=== PATIENT | male | born 1975 | race African-American/Black ===

== ENCOUNTER 2017-01-04 13:44 | Inpatient (IN) | payer OTHER ==
[2017-01-04 15:23] VITALS: BMI 27.6
--- NOTE | 2017-01-04 18:36 | HP ---
CIWA Score - CIWA Score Nausea/Vomitin Muscle Tremors: 3 Anxiety: 3 Agitation: 3 Paroxysmal Sweats: 2 Orientation: 0-Oriented Tacttile Disturbances: 2-Mild Itch/Numbness/Burn Auditory Disturbances: 2-Mild Harshness/Frighten Visual Disturbances: 2-Mild Sensitivity Headache: 2-Mild CIWA-Ar Total Score: 22 Admission ROS BHS - HPI Chief Complaint: I NEED HELP TO STOP DRINKING ALCOHOL AND COCAINE Allergies/Adverse Reactions: Allergies Allergy/AdvReac Type Severity Reaction Status Date / Time No Known Allergies Allergy Verified 01/04/17 18:55 History of Present Illness: THIS 41 YEARS OLD BLACK MALE WITH ALCOHOL AND COCAINE DEPENDENCE,SEEKING DETOX, LAST TREATMENT IN 09/21/16 T0009/23/16 NOT COMPLETED NICOTINE DEPENDENCE NO SIGNIFICANT PERIOD OF SOBRIETY MULTIPLE ADMISSIONS IN THE PAST BUT KEEP RELAPSING - Ebola screening Have you traveled outside of the country in the last 21 days: No Have you had contact with anyone from an Ebola affected area: No Have you been sick,other than usual withdrawal symptoms: No Do you have a fever: No - Review of Systems Constitutional: Loss of Appetite, Malaise, Night Sweats, Changes in sleep, Weakness EENT: reports: Nose Congestion Respiratory: reports: No Symptoms reported Cardiac: reports: No Symptoms Reported GI: reports: Diarrhea, Nausea, Abdominal cramping : reports: No Symptoms Reported Musculoskeletal: reports: Back Pain, Joint Pain, Muscle Pain Integumentary: reports: Dryness Neuro: reports: Headache, Tremors Endocrine: reports: No Symptoms Reported Hematology: reports: No Symptoms Reported Psychiatric: reports: No Sypmtoms Reported, Judgement Intact, Mood/Affect Appropiate, Orientated x3 Patient History - Patient Medical History Hx Anemia: No Hx Asthma: No Hx Chronic Obstructive Pulmonary Disease (COPD): No Hx Cancer: No Hx Cardiac Disorders: No Hx Congestive Heart Failure: No Hx Hypertension: No Hx Hypercholesterolemia: No Hx Pacemaker: No HX Cerebrovascular Accident: No Hx Seizures: No Hx Dementia: No Hx Diabetes: No Hx Gastrointestinal Disorders: No Hx Liver Disease: No Hx Genitourinary Disorders: No Hx Sexually Transmitted Disorders: No Hx Renal Disease (ESRD): No Hx Thyroid Disease: No Hx Human Immunodeficiency Virus (HIV): No (LAST 10/11 NEGATIVE) Hx Hepatitis C: No Hx Depression: Yes (NO MEDICATION) Hx Suicide Attempt: No Hx Bipolar Disorder: No Hx Schizophrenia: No Other Medical History: NO SUICIDAL,NO HOMICIDAL - Patient Surgical History Past Surgical History: No Hx Neurologic Surgery: No Hx Cataract Extraction: No Hx Cardiac Surgery: No Hx Lung Surgery: No Hx Breast Surgery: No Hx Breast Biopsy: No Hx Abdominal Surgery: No Hx Appendectomy: No Hx Cholecystectomy: No Hx Genitourinary Surgery: No Hx Section: No Hx Orthopedic Surgery: No Anesthesia Reaction: No - PPD History Previous Implant?: Yes Documented Results: Negative w/o proof Date: 09/24/15 PPD to be Administered?: Yes - Smoking Cessation Smoking history: Current every day smoker Have you smoked in the past 12 months: Yes Aproximately how many cigarettes per day: 20 Cigars Per Day: 0 Hx Chewing Tobacco Use: No Initiated information on smoking cessation: Yes 'Breaking Loose' booklet given: 01/04/17 - Substance & Tx. History Hx Alcohol Use: Yes Hx Substance Use: Yes Substance Use Type: Alcohol, Cocaine Hx Substance Use Treatment: Yes (LAST [facility] 09/22/15 TO 09/23/15 NOT COMPLETED) - Substances Abused Alcohol Route: Oral Frequency: Daily Amount used: 1PINT OF GIN/3 OF 40 OZS OF BEER Age of first use: 15 Date of Last Use: 01/04/17 Cocaine Route: Smoking Frequency: Daily Amount used: 300$ Age of first use: 9 Date of Last Use: 01/02/17 Family Disease History - Family Disease History Family Disease History: Other: Father (ALCOHOL,), Mother (ALCOHOL, ), Brother (ALCOHOL) Admission Physical Exam S - Vital Signs Vital Signs: Vital Signs - 24 hr 01/04/17 15:18 Temperature 97.9 F Pulse Rate 78 Respiratory 20 Rate Blood Pressure 104/64 - Physical General Appearance: Yes: Moderate Distress, Tremorous, Irritable, Sweating, Anxious HEENTM: Yes: Normal ENT Inspection, OLENA, Pharynx Normal Respiratory: Yes: Lungs Clear, Normal Breath Sounds, No Respiratory Distress Neck: Yes: Within Normal Limits, Supple, Trachea in good position Breast: Yes: Within Normal Limits Cardiology: Yes: Within Normal Limits, Regular Rhythm, Regular Rate, S1, S2 Abdominal: Yes: Within Normal Limits, Normal Bowel Sounds, Non Tender, Soft Genitourinary: Yes: Within Normal Limits Back: Yes: Muscle Spasm Musculoskeletal: Yes: full range of Motion, Back pain, Muscle Pain Extremities: Yes: Within Normal Limits, Normal Range of Motion, Tremors Neurological: Yes: webbing tacker II-XII NML intact, Fully Oriented, Alert, Motor Strength 5/5 Integumentary: Yes: Dry Lymphatic: Yes: Within Normal Limits - Diagnostic (1) Alcohol dependence with uncomplicated withdrawal Current Visit: No Status: Acute (2) Cocaine dependence Current Visit: No Status: Acute (3) Depression Current Visit: No Status: Acute (4) Nicotine dependence Current Visit: No Status: Acute Cleared for Admission [facility] - Detox or Rehab [facility] Level of Care: Medically Managed Detox Regimen/Protocol: Librium [facility] Breath Alcohol Content Breath Alcohol Content: 0 Urine Drug Screen - Results Drug Screen Negative: Yes
[2017-01-04] MEDS ORDERED: ACETAMINOPHEN 325 MG TABLET (FP) PO PRN (18:46)
[2017-01-04] MEDS ORDERED: MAG HYDROX/AL HYDROX/SIMETH 30 ML UNIT-DOSE CUP PO PRN (18:46)
[2017-01-04] MEDS ORDERED: hydrOXYzine PAMOATE 50 MG CAPSULE (FP) PO PRN (18:46)
[2017-01-04] MEDS ORDERED: P-EPHED 60MG/TRIPROLIDI 2.5MG TABLET PO PRN (18:46)
[2017-01-04] MEDS ORDERED: LOPERAMIDE HCL 2 MG CAPSULE PO PRN (18:46)
[2017-01-04] MEDS ORDERED: chlordiazePOXIDE HCL 25 MG CAPSULE PO ONE (18:46)
[2017-01-04] MEDS ORDERED: chlordiazePOXIDE HCL 25 MG CAPSULE PO PRN (18:46)
[2017-01-04] MEDS ORDERED: guaiFENesin/D-METHORPHAN HB 10 ML UNIT-DOSE CUPS PO PRN (18:46)
[2017-01-04] MEDS ORDERED: MAGNESIUM CITRATE 300 ML BOTTLE PO PRN (18:46)
[2017-01-04] MEDS ORDERED: IBUPROFEN 400 MG TABLET (FP) PO PRN (18:46)
[2017-01-04] MEDS: NICOTINE 21 MG/24 HOURS TOPICAL PATCH TD SCH (21:21)
[2017-01-04] MEDS: THIAMINE HCL 100 MG TABLET (FP) PO SCH (22:39)
[2017-01-04] MEDS: chlordiazePOXIDE HCL 25 MG CAPSULE PO SCH (22:40)
[2017-01-04 23:06] LABS: URINE APPEARANCE CLEAR; URINE BILIRUBIN NEGATIVE (NEGATIVE); URINE BLOOD NEGATIVE (NEGATIVE); URINE COLOR LTYELLOW; URINE GLUCOSE (UA) NEGATIVE (NEGATIVE); URINE KETONE NEGATIVE (NEGATIVE); URINE NITRITE NEGATIVE (NEGATIVE); URINE PROTEIN NEGATIVE (NEGATIVE); URINE UROBILINOGEN NEGATIVE mg/dL (0.2-1.0)
[2017-01-05] MEDS: chlordiazePOXIDE HCL 25 MG CAPSULE PO SCH ×4 (06:09→22:24)
[2017-01-05 10:19] LABS: URINE LEUK ESTERASE Negative (NEGATIVE)
[2017-01-05] MEDS: NICOTINE 21 MG/24 HOURS TOPICAL PATCH TD SCH (10:27)
[2017-01-05 10:29] LABS: MCH 25.9 pg (25.7-33.7); MCHC 32.1 g/dl (32.0-35.9); MEAN CELL VOLUME 80.8 fl (80-96); MEAN PLT VOLUME 9.1 fl (7.5-11.1); PLATELET COUNT 248 K/MM3 (134-434); RDW 16.4 % (11.9-15.9); WHITE BLOOD COUNT 7.8 K/mm3 (4.0-10.0)
[2017-01-05 10:43] LABS: ALBUMIN 3.2 g/dl (3.4-5.0); ANION GAP 8 (8-16); BILIRUBIN,TOTAL 0.3 mg/dL (0.2-1.0); CO2 26 mmol/L (21-32); GLUCOSE,RANDOM 87 mg/dL (74-106); SGOT/AST 11 U/L (15-37)
[2017-01-05 10:45] LABS: ALK PHOS 61 U/L (45-117); CALCIUM 8.1 mg/dL (8.5-10.1); SGPT/ALT 27 U/L (12-78); TOT PROT 6.6 g/dl (6.4-8.2)
--- NOTE | 2017-01-05 10:46 | EKG ---
Test Reason : Blood Pressure : / mmHG Vent. Rate : 069 BPM Atrial Rate : 069 BPM P-R Int : 138 ms QRS Dur : 088 ms QT Int : 412 ms P-R-T Axes : 076 063 014 degrees QTc Int : 441 ms NORMAL SINUS RHYTHM POSSIBLE LEFT ATRIAL ENLARGEMENT LEFT VENTRICULAR HYPERTROPHY ST ELEVATION, CONSIDER EARLY REPOLARIZATION, PERICARDITIS, OR INJURY NONSPECIFIC ST AND T WAVE ABNORMALITY ABNORMAL ECG NO PREVIOUS ECGS AVAILABLE Confirmed by JENNIFER MENEZES, SHARLENE ([id number]) on 01/05/2017 10:46:11 AM Referred By: Dean Calles Confirmed By:SHARLENE RODRIGUEZ MD
--- NOTE | 2017-01-05 11:16 | CONSULT ---
[facility] Psychiatric Consult - Data Date of interview: 01/05/17 Admission source: [facility] Identifying data: Readmission to [facility] for this 41 y/o AA male seeking detox treatment on for alcohol and cocaine.Patient is single without children,domiciled,unemployed and supported on SSI benefits. Substance Abuse History: Discussed in this session.Patient continues to endorse this history of substance dependence as follows : Smoking history: Current every day smoker. Have you smoked in the past 12 months: Yes. Aproximately how many cigarettes per day: 20. Cigars Per Day: 0. Hx Chewing Tobacco Use: No. Initiated information on smoking cessation: Yes. 'Breaking Loose' booklet given: 01/04/17. - Substance & Tx. History. Hx Alcohol Use: Yes. Hx Substance Use: Yes. Substance Use Type: Alcohol, Cocaine. Hx Substance Use Treatment: Yes (LAST [facility] 09/22/15 TO 09/23/15 NOT COMPLETED). - Substances Abused. Alcohol. Route: Oral. Frequency: Daily. Amount used: 1PINT OF GIN /3 OF 40 OZS OF BEER. Age of first use: 15. Date of Last Use: 01/04/17. Cocaine. Route: Smoking. Frequency: Daily. Amount used: 300$. Age of first use: 9. Date of Last Use: 01/02/17 Medical History: Good general health reported by the patient. Psychiatric History: Past history of psychiatric hospitalizations as recently as 2016 ([facility]).Mr Saravia endorses Bipolar Disorder and treatment with olanzapine + depakote (doses not recalled).No recollection of date of last intake.Patient reports a remote history of psychiatric OPD care." I don't go to clinics and I don't want to get back on these medications." He used to be assigned to the [facility] OPD clinic in [facility] (self- report).Patient denies history of suicide attempts. Physical/Sexual Abuse/Trauma History: Patient denies. Additional Comment: Drug Screen is negative. Mental Status Exam - Mental Status Exam Alert and Oriented to: Time, Place, Person Cognitive Function: Grossly Intact Patient Appearance: Unkempt, Disheveled Mood: Withdrawn Affect: Mood Congruent Patient Behavior: Passive, Fatigued, Guarded, Resitive to Care Speech Pattern: Clear Voice Loudness: Normal Thought Process: Goal Oriented Thought Disorder: Not Present Hallucinations: Denies Suicidal Ideation: Denies Homicidal Ideation: Denies Insight/Judgement: Poor Sleep: Well Appetite: Good Muscle strength/Tone: Normal Gait/Station: Normal Psychiatric Findings - Problem List ([place] 1, 2,3) (1) Alcohol dependence with uncomplicated withdrawal Current Visit: Yes Status: Acute (2) Cocaine dependence Current Visit: Yes Status: Acute (3) Nicotine dependence Current Visit: Yes Status: Acute (4) Bipolar disorder Current Visit: Yes Status: Chronic Comment: Reported by the patient.Non-compliant with OPD care. - Initial Treatment Plan Initial Treatment Plan: Psychoeducation : rejected by the patient.Detoxification in progress.Mr Saravia is offered olanzapine and valproate.He refused.Patient is made aware of benefits of adherence to psychiatric care and the risks inherent to refusal of treatment,including but not limited to,relapses,rehospitalizations,dilapidation of quality of life, suicide attempts,violent behavior,mood dysregulation and psychosis.Observation.
--- NOTE | 2017-01-05 13:12 | PN ---
[facility] CIWA - CIWA Score Nausea/Vomitin-No Nausea/No Vomiting Muscle Tremors: 3 Anxiety: 4-Mod. Anxious/Guarded Agitation: 3 Paroxysmal Sweats: 3 Orientation: 0-Oriented Tacttile Disturbances: 1-Very Mild Itch/Numbness Auditory Disturbances: 2-Mild Harshness/Frighten Visual Disturbances: 2-Mild Sensitivity Headache: 0-None Present CIWA-Ar Total Score: 18 BHS Progress Note (SOAP) Subjective: Anxious, Tremors, Sweating. Objective: PT. A & O X 3, OBSERVED AMBULATING ON UNIT. NO ACUTE DISTRESS. 01/05/17 13:11 Vital Signs Temperature 97.1 F L 01/05/17 10:08 Pulse Rate 96 H 01/05/17 10:08 Respiratory Rate 16 01/05/17 10:08 Blood Pressure 122/79 01/05/17 10:08 O2 Sat by Pulse Oximetry (%) Laboratory Tests 01/04/17 01/05/17 01/05/17 21:15 07:00 07:00 WBC 7.8 RBC 4.71 Hgb 12.2 D Hct 38.1 MCV 80.8 MCH 25.9 MCHC 32.1 RDW 16.4 H D Plt Count 248 MPV 9.1 Sodium 140 Potassium 4.1 Chloride 106 Carbon Dioxide 26 Anion Gap 8 BUN 11 Creatinine 1.0 Creat Clearance w eGFR > 60 Random Glucose 87 Calcium 8.1 L Total Bilirubin 0.3 AST 11 L D ALT 27 D Alkaline Phosphatase 61 Total Protein 6.6 Albumin 3.2 L Urine Color Ltyellow Urine Appearance Clear Urine pH 8.0 Ur Specific [place] 1.020 Urine Protein Negative Urine Glucose (UA) Negative Urine Ketones Negative Urine Blood Negative Urine Nitrite Negative Urine Bilirubin Negative Urine Urobilinogen Negative Ur Leukocyte Esterase Negative RPR Titer 01/05/17 07:00 WBC RBC Hgb Hct MCV MCH MCHC RDW Plt Count MPV Sodium Potassium Chloride Carbon Dioxide Anion Gap BUN Creatinine Creat Clearance w eGFR Random Glucose Calcium Total Bilirubin AST ALT Alkaline Phosphatase Total Protein Albumin Urine Color Urine Appearance Urine pH Ur Specific [place] Urine Protein Urine Glucose (UA) Urine Ketones Urine Blood Urine Nitrite Urine Bilirubin Urine Urobilinogen Ur Leukocyte Esterase RPR Titer Nonreactive LABS NOTED. Assessment: 01/05/17 13:11 WITHDRAWAL SYMPTOMS. Plan: CONTINUE DETOX. INCREASE DAILY PO FLUID INTAKE.
[2017-01-05] MEDS: diphenhydrAMINE HCL 50 MG CAPSULE PO PRN (22:24)
[2017-01-05] MEDS: THIAMINE HCL 100 MG TABLET (FP) PO SCH (22:24)
[2017-01-06] MEDS: chlordiazePOXIDE HCL 25 MG CAPSULE PO SCH ×3 (06:18→17:15)
[2017-01-06] MEDS: NICOTINE 21 MG/24 HOURS TOPICAL PATCH TD SCH ×2 (10:55→15:06)
--- NOTE | 2017-01-06 12:41 | PN ---
[facility] CIWA - CIWA Score Nausea/Vomitin-No Nausea/No Vomiting Muscle Tremors: 4-Moderate,w/Arms Extend Anxiety: 4-Mod. Anxious/Guarded Agitation: 3 Paroxysmal Sweats: No Perspiration Orientation: 0-Oriented Tacttile Disturbances: 1-Very Mild Itch/Numbness Auditory Disturbances: 0-None Visual Disturbances: 2-Mild Sensitivity Headache: 0-None Present CIWA-Ar Total Score: 14 S Progress Note (SOAP) Subjective: Anxious, Tremors, Fatigue. Objective: PT. A & O X 3, OBSERVED AMBULATING ON UNIT. NO ACUTE DISTRESS. PT. DENIES CHEST PAIN. 01/06/17 12:40 Vital Signs Temperature 97.9 F 01/06/17 09:51 Pulse Rate 89 01/06/17 09:51 Respiratory Rate 20 01/06/17 09:51 Blood Pressure 129/93 01/06/17 09:51 O2 Sat by Pulse Oximetry (%) Laboratory Tests 01/04/17 01/05/17 01/05/17 21:15 07:00 07:00 WBC 7.8 RBC 4.71 Hgb 12.2 D Hct 38.1 MCV 80.8 MCH 25.9 MCHC 32.1 RDW 16.4 H D Plt Count 248 MPV 9.1 Sodium 140 Potassium 4.1 Chloride 106 Carbon Dioxide 26 Anion Gap 8 BUN 11 Creatinine 1.0 Creat Clearance w eGFR > 60 Random Glucose 87 Calcium 8.1 L Total Bilirubin 0.3 AST 11 L D ALT 27 D Alkaline Phosphatase 61 Total Protein 6.6 Albumin 3.2 L Urine Color Ltyellow Urine Appearance Clear Urine pH 8.0 Ur Specific [place] 1.020 Urine Protein Negative Urine Glucose (UA) Negative Urine Ketones Negative Urine Blood Negative Urine Nitrite Negative Urine Bilirubin Negative Urine Urobilinogen Negative Ur Leukocyte Esterase Negative RPR Titer 01/05/17 07:00 WBC RBC Hgb Hct MCV MCH MCHC RDW Plt Count MPV Sodium Potassium Chloride Carbon Dioxide Anion Gap BUN Creatinine Creat Clearance w eGFR Random Glucose Calcium Total Bilirubin AST ALT Alkaline Phosphatase Total Protein Albumin Urine Color Urine Appearance Urine pH Ur Specific [place] Urine Protein Urine Glucose (UA) Urine Ketones Urine Blood Urine Nitrite Urine Bilirubin Urine Urobilinogen Ur Leukocyte Esterase RPR Titer Nonreactive LABS NOTED. Assessment: 01/06/17 12:41 WITHDRAWAL SYMPTOMS. Plan: CONTINUE DETOX.
[2017-01-06] MEDS: THIAMINE HCL 100 MG TABLET (FP) PO SCH (22:22)
[2017-01-06] MEDS: chlordiazePOXIDE 5 MG CAPSULE PO SCH (22:22)
[2017-01-06] MEDS: diphenhydrAMINE HCL 50 MG CAPSULE PO PRN (22:23)
[2017-01-07] MEDS: chlordiazePOXIDE 5 MG CAPSULE PO SCH ×3 (06:17→17:06)
[2017-01-07] MEDS: NICOTINE 21 MG/24 HOURS TOPICAL PATCH TD SCH (11:03)
--- NOTE | 2017-01-07 12:22 | PN ---
BHS Progress Note (SOAP) Subjective: DECREASE ANXIETY, SWEATS,FATIGUE. Objective: 01/07/17 12:21 Vital Signs Temperature 97.6 F 01/07/17 10:19 Pulse Rate 97 H 01/07/17 10:19 Respiratory Rate 18 01/07/17 10:19 Blood Pressure 126/85 01/07/17 10:19 O2 Sat by Pulse Oximetry (%) Laboratory Last Values WBC 7.8 K/mm3 (4.0-10.0) 01/05/17 07:00 RBC 4.71 M/mm3 (4.00-5.60) 01/05/17 07:00 Hgb 12.2 GM/dL (11.7-16.9) D 01/05/17 07:00 Hct 38.1 % (35.4-49) 01/05/17 07:00 MCV 80.8 fl (80-96) 01/05/17 07:00 MCH 25.9 pg (25.7-33.7) 01/05/17 07:00 MCHC 32.1 g/dl (32.0-35.9) 01/05/17 07:00 RDW 16.4 % (11.9-15.9) H D 01/05/17 07:00 Plt Count 248 K/MM3 (134-434) 01/05/17 07:00 MPV 9.1 fl (7.5-11.1) 01/05/17 07:00 Sodium 140 mmol/L (136-145) 01/05/17 07:00 Potassium 4.1 mmol/L (3.5-5.1) 01/05/17 07:00 Chloride 106 mmol/L (98-107) 01/05/17 07:00 Carbon Dioxide 26 mmol/L (21-32) 01/05/17 07:00 Anion Gap 8 (8-16) 01/05/17 07:00 BUN 11 mg/dL (7-18) 01/05/17 07:00 Creatinine 1.0 mg/dL (0.7-1.3) 01/05/17 07:00 Creat Clearance w eGFR > 60 (>60) 01/05/17 07:00 Random Glucose 87 mg/dL (74-106) 01/05/17 07:00 Calcium 8.1 mg/dL (8.5-10.1) L 01/05/17 07:00 Total Bilirubin 0.3 mg/dL (0.2-1.0) 01/05/17 07:00 AST 11 U/L (15-37) L D 01/05/17 07:00 ALT 27 U/L (12-78) D 01/05/17 07:00 Alkaline Phosphatase 61 U/L (45-117) 01/05/17 07:00 Total Protein 6.6 g/dl (6.4-8.2) 01/05/17 07:00 Albumin 3.2 g/dl (3.4-5.0) L 01/05/17 07:00 Urine Color Ltyellow 01/04/17 21:15 Urine Appearance Clear 01/04/17 21:15 Urine pH 8.0 (5.0-8.0) 01/04/17 21:15 Ur Specific [place] 1.020 (1.005-1.025) 01/04/17 21:15 Urine Protein Negative (NEGATIVE) 01/04/17 21:15 Urine Glucose (UA) Negative (NEGATIVE) 01/04/17 21:15 Urine Ketones Negative (NEGATIVE) 01/04/17 21:15 Urine Blood Negative (NEGATIVE) 01/04/17 21:15 Urine Nitrite Negative (NEGATIVE) 01/04/17 21:15 Urine Bilirubin Negative (NEGATIVE) 01/04/17 21:15 Urine Urobilinogen Negative mg/dL (0.2-1.0) 01/04/17 21:15 Ur Leukocyte Esterase Negative (NEGATIVE) 01/04/17 21:15 RPR Titer Nonreactive (NONREACTIVE) 01/05/17 07:00 Assessment: 01/07/17 12:22 WITHDRAWAL SX Plan: CONTINUE DETOX
[2017-01-07] MEDS: chlordiazePOXIDE HCL 10 MG CAPSULE PO SCH (22:37)
[2017-01-07] MEDS: THIAMINE HCL 100 MG TABLET (FP) PO SCH (22:37)
[2017-01-07] MEDS: diphenhydrAMINE HCL 50 MG CAPSULE PO PRN (22:37)
[2017-01-08] MEDS: chlordiazePOXIDE HCL 10 MG CAPSULE PO SCH (06:22)
[2017-01-08 07:06] VITALS: BP 140/67; PULSE 93; TEMP 97.4
--- NOTE | 2017-01-08 22:20 | DS ---
[facility] Detox Discharge Summary Admission Date: 01/04/17 Discharge Date: 01/08/17 - History Present History: Alcohol Dependence, Cocaine Dependence Additional Comments: PATIENT GOING HOME. PATIENT ADVISED TO CONSIDER LOCAL 12-STEP / AA OUTPATIENT SUPPORT GROUPS FOR AFTERCARE. PATIENT WAS DISCHARGED FROM DETOX UNIT IN STABLE MEDICAL CONDITION. Pertinent Past History: Depression, Bipolar Disorder, Nicotine dependence. - Physical Exam Results Vital Signs: Vital Signs Temperature 97.4 F L 01/08/17 07:05 Pulse Rate 93 H 01/08/17 07:05 Respiratory Rate 18 01/08/17 07:05 Blood Pressure 140/67 01/08/17 07:05 O2 Sat by Pulse Oximetry (%) Pertinent Admission Physical Exam Findings: WITHDRAWAL SYMPTOMS. Laboratory Tests 01/04/17 01/05/17 01/05/17 21:15 07:00 07:00 WBC 7.8 RBC 4.71 Hgb 12.2 D Hct 38.1 MCV 80.8 MCH 25.9 MCHC 32.1 RDW 16.4 H D Plt Count 248 MPV 9.1 Sodium 140 Potassium 4.1 Chloride 106 Carbon Dioxide 26 Anion Gap 8 BUN 11 Creatinine 1.0 Creat Clearance w eGFR > 60 Random Glucose 87 Calcium 8.1 L Total Bilirubin 0.3 AST 11 L D ALT 27 D Alkaline Phosphatase 61 Total Protein 6.6 Albumin 3.2 L Urine Color Ltyellow Urine Appearance Clear Urine pH 8.0 Ur Specific [place] 1.020 Urine Protein Negative Urine Glucose (UA) Negative Urine Ketones Negative Urine Blood Negative Urine Nitrite Negative Urine Bilirubin Negative Urine Urobilinogen Negative Ur Leukocyte Esterase Negative RPR Titer 01/05/17 07:00 WBC RBC Hgb Hct MCV MCH MCHC RDW Plt Count MPV Sodium Potassium Chloride Carbon Dioxide Anion Gap BUN Creatinine Creat Clearance w eGFR Random Glucose Calcium Total Bilirubin AST ALT Alkaline Phosphatase Total Protein Albumin Urine Color Urine Appearance Urine pH Ur Specific [place] Urine Protein Urine Glucose (UA) Urine Ketones Urine Blood Urine Nitrite Urine Bilirubin Urine Urobilinogen Ur Leukocyte Esterase RPR Titer Nonreactive LABS NOTED. - Treatment Hospital Course: Detox Protocol Followed, Detoxed Safely, Responded well, Discharged Condition Good Patient has Accepted a Rehab Referral to: NO. PT. ADVISED TO CONSIDER LOCAL 12- STEP/AA SUPPORT GROUPS FOR AFTERCARE. - Medication Discharge Medications: Ambulatory Orders Divalproex Sodium [Divalproex Sodium] 500 mg PO BID 09/23/15 Olanzapine [Olanzapine] 20 mg PO DAILY 09/23/15 - Diagnosis (1) Alcohol dependence with uncomplicated withdrawal Status: Acute (2) Cocaine dependence Status: Acute Qualifiers: Substance use status: uncomplicated Qualified Code(s): F14.20 - Cocaine dependence, uncomplicated; F14.20 - Cocaine dependence, uncomplicated; F14.20 - Cocaine dependence, uncomplicated (3) Depression Status: Acute Qualifiers: Depression Type: unspecified Qualified Code(s): F32.9 - Major depressive disorder, single episode, unspecified; F32.9 - Major depressive disorder, single episode, unspecified; F32.9 - Major depressive disorder, single episode, unspecified (4) Nicotine dependence Status: Chronic Qualifiers: Nicotine product type: cigarettes Substance use status: in withdrawal Qualified Code(s): F17.213 - Nicotine dependence, cigarettes, with withdrawal; F17.213 - Nicotine dependence, cigarettes, with withdrawal (5) Bipolar disorder Status: Chronic Qualifiers: Active/Remission status: remission status unspecified Qualified Code (s): F31.9 - Bipolar disorder, unspecified; F31.9 - Bipolar disorder, unspecified; F31.9 - Bipolar disorder, unspecified; F31.9 - Bipolar disorder, unspecified - AMA Did Patient Leave Against Medical Advice: No
== END 2017-01-08 09:40 | disposition home or self-care (01) | DRG 774 ==
LOC: YASAS 13:44 → Y3N 20:24
PROVIDERS: ADMIT Internal Medicine; ATTEND Internal Medicine
PROC: HZ2ZZZZ Detoxification Services for Substance Abuse Treatment (ICD-10-PCS; principal; 2017-01-04)
DX: F10.230 Alcohol dependence with withdrawal, uncomplicated (principal); F14.20 Cocaine dependence, uncomplicated; F17.213 Nicotine dependence, cigarettes, with withdrawal; F32.9 Major depressive disorder, single episode, unspecified; F31.9 Bipolar disorder, unspecified
CPT/HCPCS: 36415; 80053; 81003; 85027; 86593; 93005; 93010

== ENCOUNTER 2018-01-13 08:30 | Inpatient (IN) | payer OTHER ==
[2018-01-13 13:22] VITALS: BMI 26.7
--- NOTE | 2018-01-13 13:48 | HP ---
CIWA Score - CIWA Score Nausea/Vomitin Muscle Tremors: 2 Anxiety: 2 Agitation: 2 Paroxysmal Sweats: 1-Minimal Palms Moist Orientation: 0-Oriented Tacttile Disturbances: 1-Very Mild Itch/Numbness Auditory Disturbances: 1-Very Mild Visual Disturbances: 1-Very Mild Sensitivity Headache: 2-Mild CIWA-Ar Total Score: 14 Admission ROS BHS - HPI Chief Complaint: i need help help to stop drinking alcohol,cocaine and marijuana Allergies/Adverse Reactions: Allergies Allergy/AdvReac Type Severity Reaction Status Date / Time No Known Allergies Allergy Verified 01/13/18 13:44 History of Present Illness: this 42 years old male with alcohol,cocaine,marijuana dependence,seeking detox, withdrawal symptom,last detox o 01/08/17 bipolar disorder on med admission to this facility before but relapsing nicotine dependence no significant period of sobriety - Ebola screening Have you traveled outside of the country in the last 21 days: No Have you had contact with anyone from an Ebola affected area: No Have you been sick,other than usual withdrawal symptoms: No Do you have a fever: No - Review of Systems Constitutional: Loss of Appetite, Malaise, Night Sweats, Changes in sleep, Weakness, Unintentional Wgt. Loss EENT: reports: Nose Congestion Respiratory: reports: No Symptoms reported Cardiac: reports: No Symptoms Reported GI: reports: Nausea, Vomiting, Abdominal cramping : reports: No Symptoms Reported Musculoskeletal: reports: Back Pain, Muscle Pain Integumentary: reports: Dryness Neuro: reports: Headache, Tremors Endocrine: reports: No Symptoms Reported Hematology: reports: No Symptoms Reported Psychiatric: reports: No Sypmtoms Reported, Judgement Intact, Mood/Affect Appropiate, Orientated x3 (bipolar disorder) Patient History - Patient Medical History Hx Anemia: No Hx Asthma: No Hx Chronic Obstructive Pulmonary Disease (COPD): No Hx Cancer: No Hx Cardiac Disorders: No Hx Congestive Heart Failure: No Hx Hypertension: No Hx Hypercholesterolemia: No Hx Pacemaker: No HX Cerebrovascular Accident: No Hx Seizures: No Hx Dementia: No Hx Diabetes: No Hx Gastrointestinal Disorders: No Hx Liver Disease: No Hx Genitourinary Disorders: No Hx Sexually Transmitted Disorders: No Hx Renal Disease (ESRD): No Hx Thyroid Disease: No Hx Human Immunodeficiency Virus (HIV): No (LAST 10/11 NEGATIVE) Hx Hepatitis C: No Hx Depression: Yes (NO MEDICATION) Hx Suicide Attempt: Yes (ramos 2016) Hx Bipolar Disorder: Yes (on med) Hx Schizophrenia: No Other Medical History: nosuicidal,no homicidal - Patient Surgical History Past Surgical History: No Hx Neurologic Surgery: No Hx Cataract Extraction: No Hx Cardiac Surgery: No Hx Lung Surgery: No Hx Breast Surgery: No Hx Breast Biopsy: No Hx Abdominal Surgery: No Hx Appendectomy: No Hx Cholecystectomy: No Hx Genitourinary Surgery: No Hx Section: No Hx Orthopedic Surgery: No Anesthesia Reaction: No - PPD History Previous Implant?: Yes Documented Results: Negative w/o proof Implanted On [facility] Admission?: Yes Date: 01/06/17 PPD to be Administered?: Yes - Smoking Cessation Smoking history: Current every day smoker Have you smoked in the past 12 months: Yes Aproximately how many cigarettes per day: 20 Cigars Per Day: 0 Hx Chewing Tobacco Use: No Initiated information on smoking cessation: Yes 'Breaking Loose' booklet given: 01/13/18 - Substance & Tx. History Hx Alcohol Use: Yes Hx Substance Use: Yes Substance Use Type: Alcohol, Cocaine, Marijuana Hx Substance Use Treatment: Yes ([facility] 01/04/17 to 01/08/17) - Substances Abused Alcohol Route: Oral Frequency: Daily Amount used: 2 40 OZ BEERS Age of first use: 15 Date of Last Use: 01/12/18 Marijuana/Hashish Route: Smoking Frequency: Daily Amount used: 2 BAGS Age of first use: 10 Date of Last Use: 01/12/18 Cocaine Route: Smoking Frequency: Daily Amount used: 3 BAGS Age of first use: 41 Date of Last Use: 01/12/18 Family Disease History - Family Disease History Family Disease History: Other: Father (ALCOHOL,), Mother (ALCOHOL, ), Brother (ALCOHOL) Admission Physical Exam S - Vital Signs Vital Signs: Vital Signs - 24 hr 01/13/18 13:18 Temperature 97.3 F L Pulse Rate 72 Respiratory 20 Rate Blood Pressure 108/67 - Physical General Appearance: Yes: Moderate Distress, Tremorous, Irritable, Sweating, Anxious HEENTM: Yes: Normal ENT Inspection, OLENA, Pharynx Normal Respiratory: Yes: Lungs Clear, Normal Breath Sounds, No Respiratory Distress Neck: Yes: Within Normal Limits, Supple, Trachea in good position Breast: Yes: Within Normal Limits Cardiology: Yes: Regular Rhythm, Regular Rate, S1, S2 Abdominal: Yes: Within Normal Limits, Normal Bowel Sounds, Non Tender, Soft Genitourinary: Yes: Within Normal Limits Back: Yes: Muscle Spasm Musculoskeletal: Yes: Back pain, Muscle Pain Extremities: Yes: Tremors Neurological: Yes: Within Normal Limits, Alert, Motor Strength 5/5 Integumentary: Yes: Dry Lymphatic: Yes: Within Normal Limits - Diagnostic (1) Alcohol dependence with uncomplicated withdrawal Current Visit: Yes Status: Acute (2) Cannabis dependence Current Visit: Yes Status: Acute (3) Cocaine dependence Current Visit: Yes Status: Acute Qualifiers: Substance use status: uncomplicated Qualified Code(s): F14.20 - Cocaine dependence, uncomplicated (4) Bipolar disorder Current Visit: Yes Status: Acute Qualifiers: Active/Remission status: remission status unspecified Qualified Code(s): F31.9 - Bipolar disorder, unspecified Comment: Reported by the patient.Non-compliant with OPD care. (5) Nicotine dependence Current Visit: Yes Status: Acute Qualifiers: Nicotine product type: cigarettes Substance use status: in withdrawal Qualified Code(s): F17.213 - Nicotine dependence, cigarettes, with withdrawal (6) Dehydration Current Visit: Yes Status: Acute Cleared for Admission S - Detox or Rehab [facility] Level of Care: Medically Managed Detox Regimen/Protocol: Librium [facility] Breath Alcohol Content Breath Alcohol Content: 0 Urine Drug Screen - Results Drug Screen Negative: No Urine Drug Screen Results: THC-Marijuana, JAE-Cocaine, BAR-Barbiturates
[2018-01-13] MEDS ORDERED: MAG HYDROX/AL HYDROX/SIMETH 30 ML UNIT-DOSE CUP PO PRN (13:59)
[2018-01-13] MEDS ORDERED: LOPERAMIDE HCL 2 MG CAPSULE PO PRN (13:59)
[2018-01-13] MEDS ORDERED: guaiFENesin/D-METHORPHAN HB 10 ML UNIT-DOSE CUPS PO PRN (13:59)
[2018-01-13] MEDS ORDERED: NICOTINE POLACRILEX 2 MG GUM BUC PRN (13:59)
[2018-01-13] MEDS ORDERED: MAGNESIUM CITRATE 300 ML BOTTLE PO PRN (13:59)
[2018-01-13] MEDS ORDERED: ACETAMINOPHEN 325 MG TABLET (FP) PO PRN (13:59)
[2018-01-13] MEDS ORDERED: MENTHOL/PHENOL 1 EACH UD MM PRN (13:59)
[2018-01-13] MEDS ORDERED: P-EPHED 60MG/TRIPROLIDI 2.5MG TABLET PO PRN (13:59)
[2018-01-13] MEDS ORDERED: MAGNESIUM HYDROX 2400MG/30ML ORAL SUSPENSION 30 ML CUP PO PRN (13:59)
[2018-01-13] MEDS ORDERED: hydrOXYzine PAMOATE 50 MG CAPSULE (FP) PO PRN (13:59)
[2018-01-13] MEDS ORDERED: IBUPROFEN 400 MG TABLET (FP) PO PRN (13:59)
[2018-01-13] MEDS ORDERED: chlordiazePOXIDE HCL 25 MG CAPSULE PO PRN (13:59)
[2018-01-13] MEDS: NICOTINE 21 MG/24 HOURS TOPICAL PATCH TD SCH (15:45)
--- NOTE | 2018-01-13 16:27 | CONSULT ---
[facility] Psychiatric Consult - Data Date of interview: 01/13/18 Admission source: [facility] Identifying data: Relapse and re-admission to [facility] for this 42 y/o AA male , from [place] ancestry, seeking detoxification treatment on 3 for alcohol, cannabis (K2) and cocaine dependence. Patient is single without children,domiciled,unemployed and supported on SSI benefits. Substance Abuse History: Confirmed by the patient in this interview. Details in current [facility] report : Smoking history: Current every day smoker. Have you smoked in the past 12 months: Yes. Aproximately how many cigarettes per day: 20. Cigars Per Day: 0. Hx Chewing Tobacco Use: No. Initiated information on smoking cessation: Yes. 'Breaking Loose' booklet given: 01/13/18. - Substance & Tx. History. Hx Alcohol Use: Yes. Hx Substance Use: Yes. Substance Use Type : Alcohol, Cocaine, Marijuana. Hx Substance Use Treatment: Yes ([facility] 01/04/17 to 01/08/17). - Substances Abused. Alcohol. Route: Oral. Frequency: Daily. Amount used: 2 40 OZ BEERS. Age of first use: 15. Date of Last Use: . Marijuana/Hashish. Route: Smoking. Frequency: Daily. Amount used : 2 BAGS. Age of first use: 10. Date of Last Use: 01/12/18. Cocaine. Route: Smoking. Frequency: Daily. Amount used: 3 BAGS. Age of first use: 41. Date of Last Use: 01/12/18 Medical History: Patient endorses good general health. Psychiatric History: Already known history (previously evaluated by this teletypewriter operator ) of psychiatric hospitalizations as recently as 2016 ([facility] and [facility] Mr Saravia endorses the diagnosis of Bipolar Disorder and past treatment with olanzapine + depakote (doses not recalled). No recollection of date of last intake.Patient reports that he is currently followed bt the [facility] ACT team. Patient denies history of suicide attempts. Physical/Sexual Abuse/Trauma History: Patient denies. Additional Comment: Urine Drug Screen Results: THC-Marijuana, JAE-Cocaine, BAR- Barbiturates. Noted. Mental Status Exam - Mental Status Exam Alert and Oriented to: Time, Place, Person Cognitive Function: Good Patient Appearance: Unkempt, Disheveled Mood: Anxious Affect: Mood Congruent, Constricted Patient Behavior: Fatigued, Cooperative Speech Pattern: Clear, Appropriate Voice Loudness: Normal Thought Process: Goal Oriented Thought Disorder: Not Present Hallucinations: Denies Suicidal Ideation: Denies Homicidal Ideation: Denies Insight/Judgement: Poor Sleep: Well Appetite: Good Muscle strength/Tone: Normal Gait/Station: Normal Psychiatric Findings - Problem List ([place] 1, 2,3) (1) Alcohol dependence with uncomplicated withdrawal Current Visit: Yes Status: Acute (2) Cannabis dependence Current Visit: Yes Status: Acute (3) Cocaine dependence Current Visit: Yes Status: Acute Qualifiers: Substance use status: uncomplicated Qualified Code(s): F14.20 - Cocaine dependence, uncomplicated (4) Nicotine dependence Current Visit: Yes Status: Acute Qualifiers: Nicotine product type: cigarettes Substance use status: in withdrawal Qualified Code(s): F17.213 - Nicotine dependence, cigarettes, with withdrawal (5) Substance induced mood disorder Current Visit: Yes Status: Acute (6) Bipolar disorder Current Visit: Yes Status: Acute Qualifiers: Active/Remission status: remission status unspecified Qualified Code(s): F31.9 - Bipolar disorder, unspecified Comment: Reported by the patient.Non-compliant with OPD care. (7) Non-compliant patient Current Visit: Yes Status: Chronic - Initial Treatment Plan Initial Treatment Plan: Psychoeducation. Sleep hygiene.Detoxification in progress. Survey of pharmacy claims reveals refills for invega 156 mg IM () + zoloft 100 mg/day + depakote 750 mg po bid + zyprexa 15 mg/day (01/02/18 at [facility]. Hold medications at the time (patient refused). Will follow.
[2018-01-13] MEDS: chlordiazePOXIDE HCL 25 MG CAPSULE PO SCH ×2 (17:16→22:19)
[2018-01-13 18:09] LABS: URINE APPEARANCE CLOUDY; URINE BILIRUBIN NEGATIVE (<2.0 mg/dL); URINE GLUCOSE (UA) NEGATIVE (NEGATIVE); URINE KETONE NEGATIVE (NEGATIVE); URINE LEUK ESTERASE NEGATIVE (NEGATIVE); URINE NITRITE NEGATIVE (NEGATIVE); URINE PROTEIN 1+ (NEGATIVE); URINE UROBILINOGEN NEGATIVE mg/dL (0.2-1.0)
[2018-01-13 18:26] LABS: URINE COLOR YELLOW
[2018-01-13 18:36] LABS: URINE HYALINE CAST 42 /lpf; URINE MUCUS MANY
[2018-01-13] MEDS ORDERED: MELATONIN 5 MG TABLETS PO PRN (22:00)
[2018-01-13] MEDS ORDERED: DIVALPROEX SODIUM 500 MG TABLET E.C. PO SCH (22:00)
[2018-01-13] MEDS: THIAMINE HCL 100 MG TABLET (FP) PO SCH (22:19)
[2018-01-14] MEDS: chlordiazePOXIDE HCL 25 MG CAPSULE PO SCH ×4 (06:57→22:23)
[2018-01-14 10:55] LABS: ALBUMIN 3.7 g/dl (3.4-5.0); ALK PHOS 73 U/L (45-117); ANION GAP 4 MMOL/L (8-16); BILIRUBIN,TOTAL 0.2 mg/dL (0.2-1); BLOOD UREA NITROGEN 14 mg/dL (7-18); CHLORIDE 108 mmol/L (98-107); CO2 29 mmol/L (21-32); CREATININE 1.2 mg/dL (0.55-1.3); GLUCOSE,RANDOM 103 mg/dL (74-106); POTASSIUM 4.1 mmol/L (3.5-5.1); SGOT/AST 15 U/L (15-37); SGPT/ALT 23 U/L (13-61); SODIUM 142 mmol/L (136-145); TOT PROT 7.4 g/dl (6.4-8.2)
[2018-01-14] MEDS: PRENATAL VITAMINS W/ FOLIC ACID TABLET (FP) PO SCH (10:55)
[2018-01-14] MEDS: NICOTINE 21 MG/24 HOURS TOPICAL PATCH TD SCH (10:55)
[2018-01-14 10:58] LABS: HEMATOCRIT 39.1 % (35.4-49); HEMOGLOBIN 12.2 GM/dL (11.7-16.9); MCH 26.1 pg (25.7-33.7); MCHC 31.2 g/dl (32.0-35.9); MEAN CELL VOLUME 83.8 fl (80-96); MEAN PLT VOLUME 9.4 fl (7.5-11.1); PLATELET COUNT 250 K/MM3 (134-434); RBC 4.66 M/mm3 (4.00-5.60); RDW 16.4 % (11.9-15.9); WHITE BLOOD COUNT 5.7 K/mm3 (4.0-10.0)
--- NOTE | 2018-01-14 11:52 | PN ---
S CIWA - CIWA Score Nausea/Vomitin-No Nausea/No Vomiting Muscle Tremors: None Anxiety: 4-Mod. Anxious/Guarded Agitation: 4-Moderately Restless Paroxysmal Sweats: No Perspiration Orientation: 0-Oriented Tacttile Disturbances: 0-None Auditory Disturbances: 0-None Visual Disturbances: 0-None Headache: 0-None Present CIWA-Ar Total Score: 8 BHS Progress Note (SOAP) Subjective: PATIENT ANXIOUS AND IRRITABLE. PATIENT EXPRESSED WANTING TO BE LEFT ALONE TO REST. Objective: 01/14/18 11:51 Vital Signs Temperature 98.4 F 01/14/18 09:51 Pulse Rate 82 01/14/18 09:51 Respiratory Rate 16 01/14/18 09:51 Blood Pressure 111/78 01/14/18 09:51 O2 Sat by Pulse Oximetry (%) Laboratory Tests 01/13/18 01/14/18 01/14/18 17:55 05:40 05:40 WBC 5.7 RBC 4.66 Hgb 12.2 Hct 39.1 MCV 83.8 MCH 26.1 MCHC 31.2 L RDW 16.4 H Plt Count 250 MPV 9.4 Sodium 142 Potassium 4.1 Chloride 108 H Carbon Dioxide 29 Anion Gap 4 L BUN 14 Creatinine 1.2 Creat Clearance w eGFR > 60 Random Glucose 103 Calcium 9.0 Total Bilirubin 0.2 AST 15 ALT 23 Alkaline Phosphatase 73 Total Protein 7.4 Albumin 3.7 Urine Color Yellow Urine Appearance Cloudy Urine pH 5.0 D Ur Specific [place] 1.030 Urine Protein 1+ H Urine Glucose (UA) Negative Urine Ketones Negative Urine Blood Negative Urine Nitrite Negative Urine Bilirubin Negative Urine Urobilinogen Negative Ur Leukocyte Esterase Negative Urine WBC (Auto) 3 Urine RBC (Auto) 3 Hyaline Casts 42 Urine Mucus Many Valproic Acid 01/14/18 08:00 WBC RBC Hgb Hct MCV MCH MCHC RDW Plt Count MPV Sodium Potassium Chloride Carbon Dioxide Anion Gap BUN Creatinine Creat Clearance w eGFR Random Glucose Calcium Total Bilirubin AST ALT Alkaline Phosphatase Total Protein Albumin Urine Color Urine Appearance Urine pH Ur Specific [place] Urine Protein Urine Glucose (UA) Urine Ketones Urine Blood Urine Nitrite Urine Bilirubin Urine Urobilinogen Ur Leukocyte Esterase Urine WBC (Auto) Urine RBC (Auto) Hyaline Casts Urine Mucus Valproic Acid < 3.0 L PE: ALERT AND ORIENTED SKIN WARM AND DRY ANXIOUS AND IRRITABLE Assessment: 01/14/18 11:52 WITHDRAWAL SX Plan: CONTINUE DETOX ENCOURAGE ORAL FLUIDS CONTINUE TO MONITOR CLINICALLY
--- NOTE | 2018-01-14 18:09 | EKG ---
Test Reason : Blood Pressure : / mmHG Vent. Rate : 068 BPM Atrial Rate : 068 BPM P-R Int : 118 ms QRS Dur : 086 ms QT Int : 392 ms P-R-T Axes : 068 070 057 degrees QTc Int : 416 ms NORMAL SINUS RHYTHM POSSIBLE LEFT ATRIAL ENLARGEMENT LEFT VENTRICULAR HYPERTROPHY NONSPECIFIC T WAVE ABNORMALITY ABNORMAL ECG WHEN COMPARED WITH ECG OF 04-JAN-2017 21:27, NO SIGNIFICANT CHANGE WAS FOUND Confirmed by THANIA MENEZES, ARAMIS ([id number]) on 01/14/2018 6:09:16 PM Referred By: Confirmed By:ARAMIS MONTEIRO MD
[2018-01-14] MEDS: THIAMINE HCL 100 MG TABLET (FP) PO SCH (22:23)
[2018-01-15] MEDS: chlordiazePOXIDE HCL 25 MG CAPSULE PO SCH ×2 (06:02→10:38)
[2018-01-15 09:44] VITALS: BP 118/74; PULSE 95; TEMP 97.3
[2018-01-15] MEDS: PRENATAL VITAMINS W/ FOLIC ACID TABLET (FP) PO SCH (10:38)
[2018-01-15] MEDS: NICOTINE 21 MG/24 HOURS TOPICAL PATCH TD SCH (10:38)
--- NOTE | 2018-01-15 14:46 | DS ---
[facility] Detox Discharge Summary Admission Date: 01/13/18 Discharge Date: 01/15/18 - History Present History: Alcohol Dependence, Cannabis Dependence, Cocaine Dependence Additional Comments: Patient is A/A/Ox3, ambulatory. Patient demanded to leave AMA despite encouragement from staff to complete detox. Patient instructed to call 911 if any withdrawal symptoms or feeling sick and to follow up with his PCP within 3 days. Pertinent Past History: Denies pmhx - Physical Exam Results Vital Signs: Vital Signs Temperature 97.3 F L 01/15/18 09:43 Pulse Rate 95 H 01/15/18 09:43 Respiratory Rate 18 01/15/18 09:43 Blood Pressure 118/74 01/15/18 09:43 O2 Sat by Pulse Oximetry (%) Pertinent Admission Physical Exam Findings: Withdrawal symptoms Laboratory Tests 01/13/18 01/14/18 01/14/18 17:55 05:40 05:40 WBC 5.7 RBC 4.66 Hgb 12.2 Hct 39.1 MCV 83.8 MCH 26.1 MCHC 31.2 L RDW 16.4 H Plt Count 250 MPV 9.4 Sodium 142 Potassium 4.1 Chloride 108 H Carbon Dioxide 29 Anion Gap 4 L BUN 14 Creatinine 1.2 Creat Clearance w eGFR > 60 Random Glucose 103 Calcium 9.0 Total Bilirubin 0.2 AST 15 ALT 23 Alkaline Phosphatase 73 Total Protein 7.4 Albumin 3.7 Urine Color Yellow Urine Appearance Cloudy Urine pH 5.0 D Ur Specific [place] 1.030 Urine Protein 1+ H Urine Glucose (UA) Negative Urine Ketones Negative Urine Blood Negative Urine Nitrite Negative Urine Bilirubin Negative Urine Urobilinogen Negative Ur Leukocyte Esterase Negative Urine WBC (Auto) 3 Urine RBC (Auto) 3 Hyaline Casts 42 Urine Mucus Many Valproic Acid RPR Titer 01/14/18 01/14/18 05:40 08:00 WBC RBC Hgb Hct MCV MCH MCHC RDW Plt Count MPV Sodium Potassium Chloride Carbon Dioxide Anion Gap BUN Creatinine Creat Clearance w eGFR Random Glucose Calcium Total Bilirubin AST ALT Alkaline Phosphatase Total Protein Albumin Urine Color Urine Appearance Urine pH Ur Specific [place] Urine Protein Urine Glucose (UA) Urine Ketones Urine Blood Urine Nitrite Urine Bilirubin Urine Urobilinogen Ur Leukocyte Esterase Urine WBC (Auto) Urine RBC (Auto) Hyaline Casts Urine Mucus Valproic Acid < 3.0 L RPR Titer Nonreactive Labs reviewed: abnormal UA (encouraged PO water intake, instructed to f/u with PCP within 3 days) - Medication Discharge Medications: Ambulatory Orders Divalproex Sodium 500 mg PO BID 09/23/15 Olanzapine 20 mg PO DAILY 09/23/15 - Diagnosis (1) Abnormal finding on urinalysis Status: Acute (2) Alcohol dependence with uncomplicated withdrawal Status: Acute (3) Bipolar disorder Status: Chronic Qualifiers: Active/Remission status: remission status unspecified Qualified Code(s): F31.9 - Bipolar disorder, unspecified (4) Cannabis dependence Status: Chronic (5) Cocaine dependence Status: Chronic Qualifiers: Substance use status: uncomplicated Qualified Code(s): F14.20 - Cocaine dependence, uncomplicated (6) Nicotine dependence Status: Chronic Qualifiers: Nicotine product type: cigarettes Substance use status: in withdrawal Qualified Code(s): F17.213 - Nicotine dependence, cigarettes, with withdrawal - AMA Did Patient Leave Against Medical Advice: Yes (Patient instructed to call 911 if withdrawal symptoms or feel sick. )
[2018-01-15] MEDS ORDERED: chlordiazePOXIDE 5 MG CAPSULE PO SCH (17:00)
[2018-01-16] MEDS ORDERED: chlordiazePOXIDE HCL 10 MG CAPSULE PO SCH (17:00)
== END 2018-01-15 14:13 | disposition left against medical advice (07) | DRG 770 ==
LOC: YASAS 08:30 → Y3N 14:19
PROC: HZ2ZZZZ Detoxification Services for Substance Abuse Treatment (ICD-10-PCS; principal; 2018-01-13)
DX: F10.230 Alcohol dependence with withdrawal, uncomplicated (principal); F14.20 Cocaine dependence, uncomplicated; F12.20 Cannabis dependence, uncomplicated; F17.213 Nicotine dependence, cigarettes, with withdrawal; F31.9 Bipolar disorder, unspecified; E86.0 Dehydration; R82.90 Unspecified abnormal findings in urine; Z91.5 Personal history of self-harm; Z91.19 Patient's noncompliance with other medical treatment and regimen
CPT/HCPCS: 36415; 80053; 80164; 81003; 81015; 85027; 86593; 93005; 93010